=== PATIENT | male | born 1960 | race Caucasian/White ===

== ENCOUNTER → 2024-09-29 | Outpatient (CLI) | payer OTHER, SELFPAY ==
[2024-09-29 12:26] LABS: Free T4 (Free Thyroxine) 1.16 ng/dL (0.89-1.76); Thyroid Stimulating Hormone 2.34 uIU/mL (0.55-4.78)
== END | disposition home or self-care (01) ==
LOC: COPL 11:01
PROVIDERS: PCP Family Medicine; Referring Provider Internal Medicine Cardiovascular Disease; Visit Provider Internal Medicine Cardiovascular Disease
DX: I48.21 Permanent atrial fibrillation (principal)
CPT/HCPCS: 36415; 84439; 84443

== ENCOUNTER 2024-11-28 06:51 | Outpatient (CLI) | payer OTHER, SELFPAY ==
[2024-11-26 15:09] VITALS: BMI 29.0
[2024-11-28] VITALS (15 sets, daily range): BP systolic 98–133; BP diastolic 68–91; PULSE 48–78; RESP 12–25; TEMP 36.1–36.7; O2SAT 96–100
[2024-11-28] MEDS: MIDAZOLAM INJ 1 MG/ML VIAL 2 ML 4 MG IV (08:11)
[2024-11-28] MEDS: fentaNYL CIT INJ 50 mCg/ML AMP 2ML 100 MCG IV (08:11)
--- NOTE | 2024-11-28 10:34 | PC.NURSE ---
0816 patient is sleepy and arousable, breathing unlabored, s/p cardioversion by dr Perez, converted to sinus adrian, report received from anna De Souza, patient to recovery for 2 hrs. 0930 patient awake, alert, breathing unlabored, drinking 7up with no nausea, vomiting or difficulty swallowing 1025 patient is awake, alert, breathing unlabored, able to tolerate food tray with no nausea or vomiting, able to ambulate to bathroom and void, meets discharge criteria, discharge instructions given to patient and friend Alejandro, patient discharged home in wheelchair with all belongings.
--- NOTE | 2024-11-28 17:49 | ESOP_ITS ---
RE: ALLA ROCHA : 1960 DATE OF OPERATION: 11/28/2024 PROCEDURE PERFORMED: 1. Synchronized cardioversion. 2. Conscious sedation 30 minutes duration. 3. CPT code for the cardioversion, 06313. DIAGNOSIS: Atrial fibrillation, symptomatic. HISTORY AND INDICATIONS: The patient is a 64-year-old male with a history of multiple orthopedic surgeries, cardiomyopathy, atrial fibrillation. He has been having recurrent shortness of breath and palpitations. The atrial fibrillation is persistent despite multiple medications including flecainide, metoprolol, _ Eliquis. Recommended synchronized cardioversion because of symptomatic atrial fibrillation. DESCRIPTION OF PROCEDURE: The patient brought to the cardiac catheterization laboratory. Conscious sedation is given using 4 mg of Versed and 100 mcg of fentanyl. Synchronized cardioversion successfully performed using 100 joules of energy x1, converted to sinus rhythm. SUMMARY OF FINDINGS: Successful synchronized cardioversion from afib to sinus rhythm. EKG showed 100% sinus rhythm with no evidence of arrhythmias. RECOMMENDATIONS: Plan is to continue flecainide, Eliquis, and metoprolol. Follow up in one week. DT: 16:03:07 TT: 17:46:00 Ref: 05545 - TID: [id number] MTDD
== END 2024-11-28 10:25 | disposition home or self-care (01) ==
PROVIDERS: PCP Family Medicine; Referring Provider Internal Medicine Cardiovascular Disease; Visit Provider Internal Medicine Cardiovascular Disease
PROC: 5A2204Z Restoration of Cardiac Rhythm, Single (ICD-10-PCS; CPT 92960; principal; 2024-11-28 07:30)
DX: I48.91 Unspecified atrial fibrillation (principal); I42.9 Cardiomyopathy, unspecified; Z01.810 Encounter for preprocedural cardiovascular examination; I20.89 Other forms of angina pectoris; R00.0 Tachycardia, unspecified
CPT/HCPCS: 92960; J2250; J3010

== ENCOUNTER → 2025-09-16 | Outpatient (CLI) | payer MEDICARE, BC, SELFPAY ==
--- NOTE | 2025-09-16 | XR_ITS ---
EXAMINATION: PA lateral chest 2 views TECHNIQUE: Upright PA lateral chest 2 views INDICATIONS: Follow-up heart surgery for exterior ablation heart September 07, 2025, paroxysmal atrial fibrillation FINDINGS: Minimal prominence left ventricle No pneumonia or pulmonary edema Lower cervical plate IMPRESSION: Minimal prominence left ventricle No pneumonia or pulmonary edema
--- NOTE | 2025-09-16 07:57 | EKG_ITS ---
[facility] Test Date: 2025-09-16 Pat Name: ALLA ROCHA Department: Room: - Gender: Male Certified Pedorthotist: DEANGELO : 1960 Requested By: . Other Order Number: [id number] Reading MD: . Other Measurements Intervals [place] Rate: 58 P: 48 UT: 179 QRS: 83 QRSD: 93 T: 48 QT: 425 QTc: 421 Interpretive Statements SINUS BRADYCARDIA POSSIBLE LEFT ATRIAL ENLARGEMENT [-0.1mV P WAVE IN V1/V2] NONSPECIFIC T-WAVE ABNORMALITY Compared to ECG 09/25/2024 11:19:17 Atrial fibrillation no longer present T-wave abnormality still present /store/[id number]
== END | disposition home or self-care (01) ==
PROVIDERS: PCP Family Medicine; Referring Provider Nurse Practitioner Acute Care; Visit Provider Nurse Practitioner Acute Care
DX: I51.7 Cardiomegaly (principal); I48.0 Paroxysmal atrial fibrillation
CPT/HCPCS: 71046; 93005